=== PATIENT | male | born 1965 | race Caucasian/White ===

== ENCOUNTER → 2023-09-02 06:24 | Day surgery (SDC) | payer BC, SELFPAY | LOC: GI 06:24 | PROVIDERS: ATTENDING PHYSICIAN Internal Medicine; FAMILY PHYSICIAN Family Medicine | DX: R12 Heartburn (principal); K44.9 Diaphragmatic hernia without obstruction or gangrene; D49.0 Neoplasm of unspecified behavior of digestive system; K29.50 Unspecified chronic gastritis without bleeding; C15.4 Malignant neoplasm of middle third of esophagus; Z13.810 Encounter for screening for upper gastrointestinal disorder | CPT/HCPCS: 43239; 88305; 88342; 88360 ==

== ENCOUNTER → 2023-09-05 10:04 | Outpatient (REF) | payer BC, SELFPAY | LOC: HWRAD 10:04 | PROVIDERS: ATTENDING PHYSICIAN Internal Medicine; FAMILY PHYSICIAN Family Medicine | DX: K22.89 Other specified disease of esophagus (principal) | CPT/HCPCS: 71270; 74178; Q9967 ==

== ENCOUNTER 2023-09-26 06:26 | Day surgery (SDC) | payer BC, SELFPAY ==
[2023-09-26 07:58] VITALS: BMI 29.1
[2023-09-26 07:59] VITALS: BP 111/81
== END 2023-09-26 10:30 | disposition home or self-care (01) ==
LOC: GI 06:26
PROVIDERS: ATTENDING PHYSICIAN Internal Medicine Gastroenterology
DX: C15.9 Malignant neoplasm of esophagus, unspecified (principal); Z53.8 Procedure and treatment not carried out for other reasons
CPT/HCPCS: 43235

== ENCOUNTER 2023-09-28 13:56 | Day surgery (SDC) | payer BC, SELFPAY ==
[2023-09-28 13:55] VITALS: BMI 28.3
[2023-09-28 14:03] VITALS: BP 122/75
[2023-09-28 16:12] VITALS: BP 108/83
[2023-09-28 16:15] VITALS: BP 108/91
[2023-09-28 16:30] VITALS: BP 110/78
== END 2023-09-28 16:50 | disposition home or self-care (01) ==
LOC: GI 13:56
PROVIDERS: ATTENDING PHYSICIAN Internal Medicine Gastroenterology
DX: C15.5 Malignant neoplasm of lower third of esophagus (principal); C77.2 Secondary and unspecified malignant neoplasm of intra-abdominal lymph nodes; K22.81 Esophageal polyp; K22.89 Other specified disease of esophagus; R59.0 Localized enlarged lymph nodes; K86.9 Disease of pancreas, unspecified; R59.1 Generalized enlarged lymph nodes; K63.89 Other specified diseases of intestine
CPT/HCPCS: 43242; 88172; 88173; 88305

== ENCOUNTER → 2023-10-20 08:19 | Outpatient (REF) | payer BC, SELFPAY ==
[2023-10-20 08:57] VITALS: BP 112/74; BP_SYST 60
[2023-10-20] MEDS: ANCEF 10 IV (09:57)
[2023-10-20 11:10] VITALS: BP 117/67
[2023-10-20 11:15] VITALS: BP 118/71
[2023-10-20 11:20] VITALS: BP 119/78
[2023-10-20 11:25] VITALS: BP 116/77
== END ==
LOC: RADI 08:19
PROVIDERS: ATTENDING PHYSICIAN Internal Medicine Hematology & Oncology
DX: C15.5 Malignant neoplasm of lower third of esophagus (principal)
CPT/HCPCS: 36561; 76937; 77001; 99152; 99153; C1788

== ENCOUNTER → 2024-02-27 08:07 | Outpatient (REF) | payer BC, SELFPAY ==
[2024-02-27 09:38] LABS: % Basophils 0.8 % (0-2); % Eosinophils 3.3 % (0-6); % Immature Granulocytes 0.2 % (0-0.5); % Monocytes 9.8 % (1.7-9.3); % Neutrophils 60.9 % (42.2-75.2); Absolute Eosinophils 0.2 10^3/uL (0-0.7); Absolute Lymphocytes 1.3 10^3/uL (1.2-3.4); Absolute Monocytes 0.5 10^3/uL (0.1-0.6); Absolute Neutrophils 3.2 10^3/uL (1.4-6.5); Hematocrit 39.9 % (39.0-52.0); Hemoglobin 12.1 g/dL (13.0-18.0); Mean Corp Hgb Conc. 30.3 g/dL (33.0-37.0); Mean Corpuscular Hgb 25.9 pg (27.0-31.0); Mean Corpuscular Volume 85.3 fL (80.0-94.0); Mean Platelet Volume 9.5 fL (7.4-10.4); Nucleated Red Blood Cells % 0 % (-); Platelet Count 279 10^3/uL (130-400); Red Blood Cell Count 4.68 10^6/uL (4.70-6.10); Red Cell Dist. Width 14.8 % (11.5-14.5); White Blood Cell Count 5.2 10^3/uL (4.8-10.8)
[2024-02-27 10:23] LABS: ALT (SGPT) 14 U/L (0-50); AST (SGOT) 23 U/L (17-59); Albumin 4.3 g/dl (3.5-5.0); Alkaline Phosphatase 64 U/L (38-126); Blood Urea Nitrogen 11 mg/dl (9-20); Calcium 9.5 mg/dl (8.4-10.2); Carbon Dioxide 29 mmol/L (22-30); Chloride 104 mmol/L (98-107); Direct Bilirubin 0.1 mg/dl (0.0-0.4); Glucose 86 mg/dl (70-99); Potassium 4.2 mmol/L (3.5-5.1); Sodium 143 mmol/L (135-145); Total Bilirubin 0.5 mg/dl (0.2-1.3); Total Protein 6.9 g/dl (6.3-8.2); eGFR > 60.00
[2024-02-27 19:09] LABS: CEA 3.27 ng/ml; PSA, Total - Diagnostic 3.46 ng/ml (0.0-4.0)
== END ==
LOC: REG 08:07
PROVIDERS: ATTENDING PHYSICIAN Internal Medicine Hematology & Oncology
DX: C15.5 Malignant neoplasm of lower third of esophagus (principal); G47.00 Insomnia, unspecified
CPT/HCPCS: 36415; 80053; 82248; 82378; 84153; 85025

== ENCOUNTER → 2024-03-12 06:35 | Outpatient (REF) | payer BC, SELFPAY ==
[2024-03-12 07:29] LABS: Hematocrit 38.8 % (39.0-52.0); Hemoglobin 12.3 g/dL (13.0-18.0); Mean Corp Hgb Conc. 31.7 g/dL (33.0-37.0); Mean Corpuscular Hgb 25.9 pg (27.0-31.0); Mean Corpuscular Volume 81.9 fL (80.0-94.0); Mean Platelet Volume 9.5 fL (7.4-10.4); Platelet Count 146 10^3/uL (130-400); Red Blood Cell Count 4.74 10^6/uL (4.70-6.10); Red Cell Dist. Width 15.6 % (11.5-14.5); White Blood Cell Count 13.3 10^3/uL (4.8-10.8)
[2024-03-12 07:59] LABS: ALT (SGPT) 18 U/L (0-50); AST (SGOT) 32 U/L (17-59); Albumin 4.2 g/dl (3.5-5.0); Alkaline Phosphatase 118 U/L (38-126); Blood Urea Nitrogen 13 mg/dl (9-20); Calcium 9.8 mg/dl (8.4-10.2); Carbon Dioxide 31 mmol/L (22-30); Chloride 101 mmol/L (98-107); Direct Bilirubin 0.1 mg/dl (0.0-0.4); Glucose 98 mg/dl (70-99); Potassium 4.5 mmol/L (3.5-5.1); Sodium 139 mmol/L (135-145); Total Bilirubin 0.4 mg/dl (0.2-1.3); Total Protein 6.6 g/dl (6.3-8.2); eGFR > 60.00
[2024-03-12 08:01] LABS: % Basophils 0.8 % (0-2); % Eosinophils 0.1 % (0-6); % Immature Granulocytes 5.2 % (0-0.5); % Lymphocytes 13.2 % (20.5-51.1); % Monocytes 4.3 % (1.7-9.3); % Neutrophils 76.4 % (42.2-75.2); Absolute Basophils 0.1 10^3/uL (0-0.2); Absolute Immature Granulocytes 0.7 10^3/uL (0-0.05); Absolute Lymphocytes 1.8 10^3/uL (1.2-3.4); Absolute Monocytes 0.6 10^3/uL (0.1-0.6); Absolute Neutrophils 10.2 10^3/uL (1.4-6.5); Nucleated Red Blood Cells % 0 % (-)
[2024-03-12 09:49] LABS: PSA, Total - Screen 3.79 ng/ml (0.0-4.0)
[2024-03-13 17:57] LABS: CEA 4.29 ng/ml
== END ==
LOC: REG 06:35
PROVIDERS: ATTENDING PHYSICIAN Internal Medicine Hematology & Oncology; FAMILY PHYSICIAN Family Medicine
DX: C15.5 Malignant neoplasm of lower third of esophagus (principal); G47.00 Insomnia, unspecified
CPT/HCPCS: 36415; 80053; 82248; 82378; 85025; G0103

== ENCOUNTER → 2024-03-26 14:03 | Outpatient (REF) | payer BC, SELFPAY ==
[2024-03-26 15:14] LABS: ALT (SGPT) 25 U/L (0-50); AST (SGOT) 47 U/L (17-59); Albumin 4.1 g/dl (3.5-5.0); Alkaline Phosphatase 133 U/L (38-126); Blood Urea Nitrogen 8 mg/dl (9-20); Calcium 9.4 mg/dl (8.4-10.2); Carbon Dioxide 27 mmol/L (22-30); Chloride 101 mmol/L (98-107); Glucose 137 mg/dl (70-99); Potassium 4.2 mmol/L (3.5-5.1); Sodium 137 mmol/L (135-145); Total Bilirubin 0.6 mg/dl (0.2-1.3); Total Protein 6.5 g/dl (6.3-8.2); eGFR > 60.00
[2024-03-26 16:14] LABS: Hematocrit 38.4 % (39.0-52.0); Mean Corp Hgb Conc. 31.3 g/dL (33.0-37.0); Mean Corpuscular Hgb 25.4 pg (27.0-31.0); Mean Corpuscular Volume 81.4 fL (80.0-94.0); Mean Platelet Volume 10.2 fL (7.4-10.4); Platelet Count 138 10^3/uL (130-400); Red Blood Cell Count 4.72 10^6/uL (4.70-6.10); Red Cell Dist. Width 17.5 % (11.5-14.5); White Blood Cell Count 23.5 10^3/uL (4.8-10.8)
[2024-03-26 16:15] LABS: % Basophils 0.2 % (0-2); % Immature Granulocytes 8.7 % (0-0.5); % Lymphocytes 9.8 % (20.5-51.1); % Monocytes 7.3 % (1.7-9.3); Absolute Basophils 0.1 10^3/uL (0-0.2); Absolute Lymphocytes 2.3 10^3/uL (1.2-3.4); Absolute Monocytes 1.7 10^3/uL (0.1-0.6); Absolute Neutrophils 17.4 10^3/uL (1.4-6.5); Nucleated Red Blood Cells % 0.1 % (-)
== END ==
LOC: REG 14:03
PROVIDERS: ATTENDING PHYSICIAN Internal Medicine Hematology & Oncology; FAMILY PHYSICIAN Family Medicine
DX: C15.5 Malignant neoplasm of lower third of esophagus (principal); G47.00 Insomnia, unspecified
CPT/HCPCS: 36415; 80053; 85025

== ENCOUNTER → 2024-04-10 15:39 | Outpatient (REF) | payer BC, SELFPAY ==
[2024-04-10 16:43] LABS: Hemoglobin 11.2 g/dL (13.0-18.0); Mean Corp Hgb Conc. 31.1 g/dL (33.0-37.0); Mean Corpuscular Hgb 25.6 pg (27.0-31.0); Mean Corpuscular Volume 82.2 fL (80.0-94.0); Mean Platelet Volume 10.3 fL (7.4-10.4); Platelet Count 123 10^3/uL (130-400); Red Blood Cell Count 4.38 10^6/uL (4.70-6.10); White Blood Cell Count 24.9 10^3/uL (4.8-10.8)
[2024-04-10 16:56] LABS: ALT (SGPT) 27 U/L (0-50); AST (SGOT) 62 U/L (17-59); Albumin 4.1 g/dl (3.5-5.0); Alkaline Phosphatase 150 U/L (38-126); Blood Urea Nitrogen 12 mg/dl (9-20); Calcium 9.5 mg/dl (8.4-10.2); Carbon Dioxide 29 mmol/L (22-30); Chloride 103 mmol/L (98-107); Glucose 85 mg/dl (70-99); Potassium 4.4 mmol/L (3.5-5.1); Sodium 138 mmol/L (135-145); Total Bilirubin 0.8 mg/dl (0.2-1.3); Total Protein 6.4 g/dl (6.3-8.2); eGFR > 60.00
[2024-04-10 17:01] LABS: % Basophils 0.2 % (0-2); % Immature Granulocytes 9.2 % (0-0.5); % Lymphocytes 10.3 % (20.5-51.1); % Monocytes 10.6 % (1.7-9.3); % Neutrophils 69.7 % (42.2-75.2); Absolute Basophils 0.1 10^3/uL (0-0.2); Absolute Immature Granulocytes 2.3 10^3/uL (0-0.05); Absolute Lymphocytes 2.6 10^3/uL (1.2-3.4); Absolute Monocytes 2.6 10^3/uL (0.1-0.6); Absolute Neutrophils 17.3 10^3/uL (1.4-6.5); Nucleated Red Blood Cells % 0.4 % (-)
== END ==
LOC: REG 15:39
PROVIDERS: ATTENDING PHYSICIAN Internal Medicine Hematology & Oncology; FAMILY PHYSICIAN Family Medicine
DX: C15.5 Malignant neoplasm of lower third of esophagus (principal); G47.00 Insomnia, unspecified
CPT/HCPCS: 36415; 80053; 85025

== ENCOUNTER 2024-04-21 09:48 | Emergency (ER) | payer BC, SELFPAY ==
[2024-04-21 09:54] VITALS: BP 116/82
--- NOTE | 2024-04-21 10:00 | ED.GENMED ---
History of Present Illness
General
Chief Complaint: Oral/Mouth Problem
Time Seen by Provider: 04/21/24 10:00
History of Present Illness
History of Present Illness:
TIME OF INITIAL ENCOUNTER: 10:40 AM
HPI: The patient presents due to pain in the mouth concerning for mucositis. He has a history of esophageal cancer and has been getting chemo since this past summer. He called his oncologist last night and today and decision was made to have him
come in here for further evaluation.
EXAM:
GENERAL: Appears just slightly uncomfortable
HEENT: Moist oral mucosa, mild degree of aphthous stomatitis noted
CARDIOVASCULAR: No murmurs, normal heart rate, regular rhythm, No chest wall tenderness
PULMONARY: No respiratory distress, breath sounds are clear and equal
ABDOMEN: Soft with no peritoneal signs, no tenderness
NEUROLOGIC: Excellent strength all extremities, no coordination deficits
PSYCHIATRIC: Appropriate mental status, normal insight and judgement
EXTREMITIES: Nontender, no edema, moves all extremities equally
SKIN: No rash, no lesions
NUMBER AND COMPLEXITY OF PROBLEMS ADDRESSED AT THE ENCOUNTER
� Chronic conditions affecting care: Esophageal cancer on chemo/has had esophagectomy
� Acute Exacerbation and/or Progression of Chronic Illness: This is an acute problem
� Differential Diagnosis includes: Aphthous stomatitis, medication reaction, less likely allergic reaction, viral syndrome
AMOUNT AND/OR COMPLEXITY OF DATA TO BE REVIEWED AND ANALYZED
� I performed an independent evaluation of and my interpretation is:
EKG:
CT:
X-rays:
Laboratory Studies: White count 14.0, hemoglobin 11.7, CMP unremarkable
Other:
� Review of other/old records: I reviewed records including operative report for placement back in September
� Clinical information was obtained by an independent historian: I spoke to and son
� Prescriptions/Medications Considered but not given:
� Further testing considered but not performed:
RISK OF COMPLICATIONS AND/OR MORBIDITY OR MORTALITY OF PATIENT MANAGEMENT
� Social determinants of health affecting care: Lives at home
� Discussion with other providers:
� Escalation of care including admission/observation vs risk of discharge considered: The patient was given Dilaudid and viscous lidocaine.
ANY OTHER UPDATES:
11:50 AM: I reassessed patient. The patient feels significant proved and feels a little audited more than anything. He requests viscous lidocaine which I have sent both a prescription for that and Percocet to his pharmacy for a few days. He was
also given a bag of fluid to ensure hydration.
Phy Exam
Physical Exam
Physical Exam:
See HPI
Course
Orders/Labs/Results
Orders:
Orders
04/21/24 10:12
0.9% Sodium Chloride 1000 ml [Nss] 1,000 ml IV BOLUS
HYDROmorphone [Dilaudid] 0.5 mg IV NOW STA
Ondansetron Injectable [Zofran] 4 mg IV NOW STA
Viscous Lidocaine 2% [Xylocaine Viscous Cup] 5 ml PO Q3HPRN PRN
04/21/24 10:14
Viscous Lidocaine 2% [Xylocaine Viscous Cup] 5 ml PO Q3HPRN PRN
04/21/24 10:19
Complete Blood Count/With Diff Urgent
Comprehensive Metabolic Panel Urgent
Manual Differential Urgent
04/21/24 12:00
Lidocaine Visc/Maalox/Benadryl [Magic or Miracle Mouthwash] 10 ml PO 6/D
Abnormal Lab Results
04/21/24
10:19
WBC 14.0 H 10^3/uL
(4.8-10.8)
RBC 4.57 L 10^6/uL
(4.70-6.10)
Hgb 11.7 L g/dL
(13.0-18.0)
Hct 36.9 L %
(39.0-52.0)
MCH 25.6 L pg
(27.0-31.0)
MCHC 31.7 L g/dL
(33.0-37.0)
RDW 20.3 H %
(11.5-14.5)
MPV 10.5 H fL
(7.4-10.4)
Abs Neuts (Manual) 7.2 H 10^3/uL
(1.4-6.5)
Band Neutrophils 4 H %
(0-3)
Monocytes (Manual) 18 H %
(2-9)
Creatinine 0.6 L mg/dL
(0.7-1.3)
Alkaline Phosphatase 169 H U/L
(38-126)
04/21/24 10:19
04/21/24 10:19
Vital Signs
Initial and Last Documented VS:
Initial Vital Signs
Temp Pulse Resp BP Pulse Ox
37.1 C 86 18 116/82 100
04/21/24 09:54 04/21/24 09:54 04/21/24 09:54 04/21/24 09:54 04/21/24 09:54
Last Documented Vital Signs
Temp Pulse Resp BP Pulse Ox
36.6 C 73 20 115/84 100
04/21/24 10:10 04/21/24 11:38 04/21/24 11:38 04/21/24 11:38 04/21/24 11:45
*Critical Care Note
Total Time (30-74mins, 75-104mins- exclusive of procedures): Not Applicable
ED Attending Note
-
Portions of this chart may have been created with voice recognition software.� Occasional wrong word or��sound alike� substitutions may have occurred due to the inherent limitations of voice recognition software.
Discharge Plan
Departure
Patient Disposition: Home (Routine Discharge)
Date of Disposition: 04/21/24
Time of Disposition: 11:43
Patient with high blood pressure during this ER visit?: Yes
Discharge Problem:
Aphthous stomatitis
Instructions: Mouth sores, BLOOD PRESSURE
Prescriptions:
New
lidocaine HCl [Lidocaine Viscous] 2 % solution
1 applic mucous membrane Q4H PRN (Reason: Pain) Qty: 100 0RF
oxycodone-acetaminophen [Percocet] 5-325 mg tablet
1 - 2 tab PO Q6HPRN PRN (Reason: pain) Qty: 14 0RF
Referrals:
Chad Pollack MD [Family Provider] -
Activity Restrictions/Additional Instructions:
I sent a prescription for both Percocet and viscous lidocaine to your pharmacy. If you take Percocet, I recommend you take something like MiraLAX to help prevent constipation. Follow-up with your oncologist. Return if worse or other concerns.
Interventions
Interventions:
*Risk Screen - Suicide Last Done: 04/21/24 09:54
*General Assessment Last Done: 04/21/24 09:54
*Neglect/Abuse Screening Last Done: 04/21/24 09:54
ED- Fall Risk Assessment Last Done: 04/21/24 10:10
*ED COVID-19 Vaccine History Last Done: 04/21/24 10:10
Discharge Date and Time
Print Language: [place]
[2024-04-21 10:10] VITALS: BP 120/80; BMI 24.5
[2024-04-21] MEDS: NSS 1000 IV (10:20)
[2024-04-21] MEDS: ZOFRAN 4 MG IV (10:20)
[2024-04-21] MEDS: DILAUDID 0.5 MG IV (10:20)
[2024-04-21] MEDS: XYLOCAINE VISCOUS CUP 5 ML PO (10:26)
[2024-04-21 10:46] LABS: ALT (SGPT) 36 U/L (0-50); AST (SGOT) 53 U/L (17-59); Albumin 4.4 g/dl (3.5-5.0); Alkaline Phosphatase 169 U/L (38-126); Blood Urea Nitrogen 11 mg/dl (9-20); Calcium 9.3 mg/dl (8.4-10.2); Carbon Dioxide 28 mmol/L (22-30); Chloride 101 mmol/L (98-107); Estimated Creatinine Clearance > 125 ml/min; Glucose 92 mg/dl (70-99); Potassium 3.7 mmol/L (3.5-5.1); Sodium 137 mmol/L (135-145); Total Bilirubin 1.1 mg/dl (0.2-1.3); Total Protein 6.7 g/dl (6.3-8.2); eGFR > 60.00
[2024-04-21 10:56] LABS: Hematocrit 36.9 % (39.0-52.0); Hemoglobin 11.7 g/dL (13.0-18.0); Mean Corp Hgb Conc. 31.7 g/dL (33.0-37.0); Mean Corpuscular Hgb 25.6 pg (27.0-31.0); Mean Corpuscular Volume 80.7 fL (80.0-94.0); Mean Platelet Volume 10.5 fL (7.4-10.4); Platelet Count 138 10^3/uL (130-400); Red Blood Cell Count 4.57 10^6/uL (4.70-6.10); Red Cell Dist. Width 20.3 % (11.5-14.5)
[2024-04-21 11:00] VITALS: BP 115/84
[2024-04-21 11:33] LABS: Absolute Neutrophils -Man Diff 7.2 10^3/uL (1.4-6.5); Band Neutrophils 4 % (0-3); Lymphocytes 23 % (20-51); Metamyelocytes 3 % (-); Monocytes 18 % (2-9); Myelocytes 4 % (-); Segmented Neutrophils 48 % (42-75)
[2024-04-21 11:34] LABS: Normal RBC Morphology No; Platelets Checked YES
[2024-04-21 11:38] VITALS: BP 115/84
[2024-04-21 11:43] LABS: Hypochromasia Slight; Ovalocytes FEW; Polychromasia Slight; Target Cells FEW
[2024-04-21 11:44] LABS: Microcytosis FEW; Total Cells Counted 100
== END 2024-04-21 11:58 | disposition home or self-care (01) ==
LOC: EMR 09:48
PROVIDERS: EMERGENCY PHYSICIAN Emergency Medicine; FAMILY PHYSICIAN Family Medicine
DX: K12.0 Recurrent oral aphthae (principal)
CPT/HCPCS: 99283; 96374; 96361; 80053; 85025

== ENCOUNTER → 2024-05-25 07:13 | Outpatient (REF) | payer BC, SELFPAY ==
[2024-05-25 08:20] LABS: % Basophils 0.8 % (0-2); % Eosinophils 4.2 % (0-6); % Immature Granulocytes 0.2 % (0-0.5); % Lymphocytes 22.5 % (20.5-51.1); % Monocytes 7.5 % (1.7-9.3); % Neutrophils 64.8 % (42.2-75.2); Absolute Basophils 0.1 10^3/uL (0-0.2); Absolute Eosinophils 0.3 10^3/uL (0-0.7); Absolute Lymphocytes 1.5 10^3/uL (1.2-3.4); Absolute Monocytes 0.5 10^3/uL (0.1-0.6); Absolute Neutrophils 4.2 10^3/uL (1.4-6.5); Hematocrit 37.5 % (39.0-52.0); Mean Corpuscular Hgb 28.7 pg (27.0-31.0); Mean Corpuscular Volume 89.7 fL (80.0-94.0); Mean Platelet Volume 10.1 fL (7.4-10.4); Nucleated Red Blood Cells % 0 % (-); Platelet Count 169 10^3/uL (130-400); Red Blood Cell Count 4.18 10^6/uL (4.70-6.10); Red Cell Dist. Width 20.8 % (11.5-14.5); White Blood Cell Count 6.4 10^3/uL (4.8-10.8)
[2024-05-25 08:53] LABS: ALT (SGPT) 20 U/L (0-50); AST (SGOT) 28 U/L (17-59); Albumin 3.8 g/dl (3.5-5.0); Alkaline Phosphatase 74 U/L (38-126); Blood Urea Nitrogen 10 mg/dl (9-20); Calcium 9.6 mg/dl (8.4-10.2); Carbon Dioxide 29 mmol/L (22-30); Chloride 104 mmol/L (98-107); Glucose 114 mg/dl (70-99); Magnesium 1.8 mg/dl (1.6-2.3); Potassium 4.5 mmol/L (3.5-5.1); Sodium 140 mmol/L (135-145); Total Bilirubin 0.9 mg/dl (0.2-1.3); Total Protein 6.3 g/dl (6.3-8.2); eGFR > 60.00
== END ==
LOC: REG 07:13
PROVIDERS: ATTENDING PHYSICIAN Nurse Practitioner Adult Health; FAMILY PHYSICIAN Family Medicine
DX: C15.5 Malignant neoplasm of lower third of esophagus (principal); G47.00 Insomnia, unspecified
CPT/HCPCS: 36415; 80053; 83735; 85025

== ENCOUNTER → 2024-06-18 15:03 | Outpatient (REF) | payer BC, SELFPAY | LOC: MRI 3T 15:03 | PROVIDERS: ATTENDING PHYSICIAN Surgery; FAMILY PHYSICIAN Family Medicine | DX: R97.20 Elevated prostate specific antigen [PSA] (principal) | CPT/HCPCS: 72197; A9575 ==